=== PATIENT | male | born 1940 | race Caucasian/White ===

== ENCOUNTER 2016-09-18 01:21 | Observation (INO) | payer MEDICARE, OTHER ==
[2016-09-18 01:40] LABS: ABSOLUTE BASOPHILS # (AUTO) 0.1 10^3/uL (0.0-0.2); ABSOLUTE EOSINOPHILS # (AUTO) 0.4 10^3/uL (0.0-0.6); ABSOLUTE LYMPHOCYTES (AUTO) 3.3 10^3/uL (0.5-4.7); ABSOLUTE MONOCYTES (AUTO) 0.8 10^3/uL (0.1-1.4); ABSOLUTE NEUT (AUTO) 5.5 10^3/uL (1.7-8.2); BASOPHILS % (AUTO) 1.2 % (0-2); EOSINOPHILS % (AUTO) 3.8 % (0-6); HEMATOCRIT 42.5 % (37.9-51.0); HEMOGLOBIN 14.8 g/dL (13.5-17.0); HGB HCT DIFFERENCE 1.9; LYMPHOCYTES % (AUTO) 32.9 % (13-45); MEAN CORPUSCULAR HEMOGLOBIN 30.3 pg (27.0-33.4); MEAN CORPUSCULAR HGB CONC 34.9 g/dL (32.0-36.0); MEAN CORPUSCULAR VOLUME 87 fl (80-97); MONOCYTES % (AUTO) 7.6 % (3-13); RED CELL DISTRIBUTION WIDTH 13.6 % (11.5-14.0); SEGMENTED NEUTROPHILS % (AUTO) 54.5 % (42-78); WHITE BLOOD COUNT 10.1 10^3/uL (4.0-10.5)
[2016-09-18 01:47] LABS: PARTIAL THROMBOPLASTIN TIME 32.5 SEC (23.5-35.8); PROTHROMBIN TIME 13.2 SEC (11.4-15.4)
[2016-09-18 01:53] LABS: ALANINE AMINOTRANSFERASE 33 U/L (21-72); ALBUMIN 4.2 g/dL (3.5-5.0); ALKALINE PHOSPHATASE 64 U/L (38-126); ANION GAP 13 (5-19); ASPARTATE AMINO TRANSFERASE 29 U/L (17-59); BILIRUBIN,DIRECT 0.2 mg/dL (0.0-0.4); BILIRUBIN,TOTAL 0.6 mg/dL (0.2-1.3); BLOOD UREA NITROGEN 19 mg/dL (7-20); CARBON DIOXIDE 28 mmol/L (22-30); CHLORIDE 103 mmol/L (98-107); CREATININE RESULT 1.16 mg/dL (0.52-1.25); GLUCOSE 159 mg/dL (75-110); POTASSIUM 3.7 mmol/L (3.6-5.0); SODIUM 143.8 mmol/L (137-145); TOTAL PROTEIN 6.8 g/dL (6.3-8.2)
--- NOTE | 2016-09-18 01:54 | ER Document Report ---
ED General - General Chief Complaint: Numbness Stated Complaint: NUMBNESS AND TINGLING TO RIGHT SIDE Notes: Patient is a [age] [id number] male who presents with complaints of episode of numbness, tingling, and discoordination of his right leg right arm. He also numbness going into his right chin and face. Said symptoms started around midnight. He said initially last about 10 minutes and eventually resolved. His says that his gait was very ataxic this time. Patient said symptoms and later came back for just a few minutes and then went away again. He is currently asymptomatic. He's never had anything like this before. No chest pain. No headache. No nausea vomiting. No previous history of stroke. He takes a daily aspirin. His did give him 3 baby aspirin before came to the ER. He does have a history of MD. He does have stents. He's currently not on Plavix. TRAVEL OUTSIDE OF THE [place] IN LAST 30 DAYS: No - Related Data Allergies/Adverse Reactions: prednisone [Prednisone] Adverse Reaction (Mild, Verified 07/05/12 21:46) Past Medical History - Social History Smoking Status: Unknown if Ever Smoked Frequency of alcohol use: None Drug Abuse: None Family History: Reviewed & Not Pertinent - Past Medical History Cardiac Medical History: Reports: Hx Hypertension Past Surgical History: Reports: Hx Cardiac Surgery - pacer, Hx Inguinal Hernia, Hx Pacemaker - Immunizations Immunizations up to date: No Hx Diphtheria, Pertussis, Tetanus Vaccination: No Review of Systems - Review of Systems Notes: My Normal Review Basic REVIEW OF SYSTEMS: CONSTITUTIONAL : Denies fever, chills, or sweats. Denies recent illness. EENT: Denies eye, ear, throat, or mouth pain or symptoms. Denies nasal or sinus congestion. CARDIOVASCULAR: Denies chest pain. RESPIRATORY: Denies cough, cold, or chest congestion. Denies shortness of breath, difficulty breathing, or wheezing. GASTROINTESTINAL: Denies abdominal pain. Denies nausea, vomiting, or diarrhea. Denies constipation. Last BM: MUSCULOSKELETAL: Denies neck or back pain or joint pain or swelling. SKIN: Denies rash or skin lesions. HEMATOLOGIC : Denies easy bruising or bleeding. NEUROLOGICAL: Denies altered mental status or loss of consciousness. Denies headache. right sided numbness and facial numbness. some ataxia. PSYCHIATRIC: Denies anxiety or stress or depression. ALL OTHER SYSTEMS REVIEWED AND NEGATIVE. Physical Exam - Vital signs Vitals: Temp Pulse Resp BP Pulse Ox 98.2 F 72 16 165/83 H 96 09/18/16 01:26 09/18/16 01:26 09/18/16 01:26 09/18/16 01:26 09/18/16 01:26 - Notes Notes: General Appearance: Well nourished, alert, cooperative, no acute distress, no obvious discomfort. Vitals: reviewed, See vital signs table. Head: no swelling or tenderness to the head Eyes: PERRL, EOMI, Conjuctiva clear Mouth: No decreasd moisture Neck: Supple, no neck tenderness, No thyromegaly Lungs: No wheezing, No rales, No rhonci, No accessory muscle use, good air exchange bilaterally. Heart: Normal rate, Regular rythm, No murmur, no rub Abdomen: Normal BS, soft, No rigidity, No abdominal tenderness, No guarding, no rebound, no abdominal masses, no organomegaly Extremities: strength 5/5 in all extremities, good pulses in all extremities, no swelling or tenderness in the extremities, no edema. Skin: warm, dry, appropriate color, no rash Neuro: speech clear, oriented x 3, normal affect, responds appropriately to questions. Cranial nerves II through XII are intact. Distal sensation intact. Patient moves all extremities without difficulty. Normal gait. Normal Romberg. Focal neurologic deficits on exam. Course - Vital Signs Vital signs: Temp Pulse Resp BP Pulse Ox 97.8 F 73 16 160/93 H 98 09/18/16 02:56 09/18/16 02:56 09/18/16 02:56 09/18/16 02:56 09/18/16 02:56 - Laboratory Result Diagrams: 09/18/16 01:31 09/18/16 01:31 Laboratory results interpreted by me: 09/18/16 01:31 Glucose 159 H - Transfer of Care Notes: 09/18/16 03:09 Patient symptoms are concerning for a TIA. He is asymptomatic at this time. I spoke with the hospitalist who agrees to admit the patient for further workup and treatment. Patient had aspirin just prior to arrival to the ER and therefore aspirin is not given here. Dictation of this chart was performed using voice recognition software; therefore, there may be some unintended grammatical errors. Discharge - Discharge Clinical Impression: TIA (transient ischemic attack) Qualifiers: Transient cerebral ischemia type: unspecified Qualified Code(s): G45.9 - Transient cerebral ischemic attack, unspecified Condition: Stable Disposition: ADMITTED OBSERVATION Admitting Provider: Hospitalist Unit Admitted: Telemetry
[2016-09-18] MEDS ORDERED: ASPIRIN 325 MG TABLET PO ONE (03:08)
[2016-09-18] MEDS ORDERED: ATORVASTATIN CALCIUM 80 MG TABLET PO ONE (03:08)
[2016-09-18] MEDS ORDERED: ACETAMINOPHEN 325 MG TABLET PO PRN (03:11)
[2016-09-18] MEDS ORDERED: DOCUSATE SODIUM 100 MG CAPSULE PO PRN (03:11)
[2016-09-18 03:59] LABS: CREATINE KINASE MB 1.48 ng/mL (<4.55)
[2016-09-18] MEDS ORDERED: POTASSIUM CHLORIDE 10 MEQ TABLET.SA PO SCH (04:00)
[2016-09-18 04:05] LABS: TROPONIN I < 0.012 ng/mL
--- NOTE | 2016-09-18 04:17 | PDOC H&P ---
History of Present Illness Admission Date/PCP: 09/18/16 03:20 Patient complains of: Right-sided numbness History of Present Illness: ALLI VINES SR is a 76 year old male with a past medical history of coronary artery disease status post stent of unknown artery, hypertension, dyslipidemia and remote migraine headache. Improvement in his usual state of health until approximately an hour prior to presentation awakening from sleep with right-sided numbness involving the face arm and leg persisting approximately 15 minutes resolving spontaneously only to recur approximately 30 minutes later lasting approximately 10 minutes resolving spontaneously. He denied headache blurred vision difficulty with speech or swallowing. He denies palpitations, previous, new medications and otherwise feels well. He has had a recent screening carotid ultrasound which was 2 months ago. Past Medical History Cardiac Medical History: Reports: Coronary Artery Disease, Hypertension, Other - Status post permanent pacemaker placement Endocrine Medical History: Reports: Diabetes Mellitus Type 2, Other - Dyslipidemia Past Surgical History Past Surgical History: Reports: Pacemaker Social History Information Source: Patient Lives with: Family Smoking Status: Never Smoker Frequency of Alcohol Use: None Hx Recreational Drug Use: No Drugs: None - Advance Directive Resuscitation Status: Full Code Family History Family History: Hypertension Parental Family History Reviewed: Yes Children Family History Reviewed: Yes Sibling(s) Family History Reviewed.: Yes Medication/Allergy Allergies/Adverse Reactions: prednisone [Prednisone] Adverse Reaction (Mild, Verified 07/05/12 21:46) Review of Systems Constitutional: ABSENT: chills, fever(s), headache(s), weight gain, weight loss Eyes: ABSENT: visual disturbances Ears: ABSENT: hearing changes Cardiovascular: ABSENT: chest pain, dyspnea on exertion, edema, orthropnea, palpitations Respiratory: ABSENT: cough, hemoptysis Gastrointestinal: ABSENT: abdominal pain, constipation, diarrhea, hematemesis, hematochezia, nausea, vomiting Genitourinary: ABSENT: dysuria, hematuria Musculoskeletal: ABSENT: joint swelling Integumentary: ABSENT: rash, wounds Neurological: ABSENT: abnormal gait, abnormal speech, confusion, dizziness, focal weakness, syncope Psychiatric: ABSENT: anxiety, depression, homidical ideation, suicidal ideation Endocrine: ABSENT: cold intolerance, heat intolerance, polydipsia, polyuria Hematologic/Lymphatic: ABSENT: easy bleeding, easy bruising Physical Exam Vital Signs: Temp Pulse Resp BP Pulse Ox 97.8 F 73 32 H 161/93 H 95 09/18/16 02:56 09/18/16 02:56 09/18/16 03:37 09/18/16 03:37 09/18/16 03:37 Intake & Output 09/16/16 09/17/16 09/18/16 11:59 11:59 11:59 Weight 86.183 kg General appearance: PRESENT: no acute distress, well-developed, well-nourished Head exam: PRESENT: atraumatic, normocephalic Eye exam: PRESENT: conjunctiva pink, EOMI, PERRLA. ABSENT: scleral icterus Ear exam: PRESENT: normal external ear exam Mouth exam: PRESENT: moist, tongue midline Neck exam: ABSENT: carotid bruit, JVD, lymphadenopathy, thyromegaly Respiratory exam: PRESENT: clear to auscultation barbi. ABSENT: rales, rhonchi, wheezes Cardiovascular exam: PRESENT: RRR. ABSENT: diastolic murmur, rubs, systolic murmur Pulses: PRESENT: normal dorsalis pedis pul Vascular exam: PRESENT: normal capillary refill GI/Abdominal exam: PRESENT: normal bowel sounds, soft. ABSENT: distended, guarding, mass, organolmegaly, rebound, tenderness Rectal exam: PRESENT: deferred Extremities exam: PRESENT: full ROM. ABSENT: calf tenderness, clubbing, pedal edema Neurological exam: PRESENT: alert, awake, oriented to person, oriented to place , oriented to time, oriented to situation, CN II-XII grossly intact. ABSENT: motor sensory deficit Psychiatric exam: PRESENT: appropriate affect, normal mood. ABSENT: homicidal ideation, suicidal ideation Skin exam: PRESENT: dry, intact, warm. ABSENT: cyanosis, rash Results Impressions: Head CT 09/18/16 00:00 IMPRESSION: MILD CHRONIC CHANGES OF ATROPHY AND MICROVASCULAR ISCHEMIA. NO ACUTE PROCESS. Assessment & Plan - Diagnosis (1) TIA (transient ischemic attack) Qualifiers: Transient cerebral ischemia type: unspecified Qualified Code(s): G45.9 - Transient cerebral ischemic attack, unspecified Is this a current diagnosis for this admission?: YesPlan: TIA with multiple risk factors he's received aspirin. Lipitor permissive hypertension will evaluate with MRI of brain (2) Hypertension Is this a current diagnosis for this admission?: YesPlan: Well controlled though will hold antihypertensives for systolic pressure greater than 160 (3) Diabetes 1.5, managed as type 2 Is this a current diagnosis for this admission?: YesPlan: Patient recently started on metformin now evaluated and A1c and initiate sliding scale insulin - Time Time Spent: 50 to 70 Minutes
[2016-09-18 04:30] LABS: URINE BARBITURATES SCREEN NEGATIVE; URINE METHADONE SCREEN NEGATIVE; URINE OPIATES LOW NEGATIVE; URINE PHENCYCLIDINE SCREEN NEGATIVE
[2016-09-18] MEDS: HEPARIN SOD (PORCINE) 5,000 UNIT/ML 1 ML SYRINGE SUBCUT SCH ×2 (06:41→14:23)
[2016-09-18 07:54] LABS: ABSOLUTE BASOPHILS # (AUTO) 0.1 10^3/uL (0.0-0.2); ABSOLUTE EOSINOPHILS # (AUTO) 0.3 10^3/uL (0.0-0.6); ABSOLUTE LYMPHOCYTES (AUTO) 3.4 10^3/uL (0.5-4.7); ABSOLUTE MONOCYTES (AUTO) 0.6 10^3/uL (0.1-1.4); ABSOLUTE NEUT (AUTO) 4.3 10^3/uL (1.7-8.2); BASOPHILS % (AUTO) 1.1 % (0-2); EOSINOPHILS % (AUTO) 3.9 % (0-6); HEMATOCRIT 43.2 % (37.9-51.0); HEMOGLOBIN 14.9 g/dL (13.5-17.0); HGB HCT DIFFERENCE 1.5; LYMPHOCYTES % (AUTO) 38.4 % (13-45); MEAN CORPUSCULAR HEMOGLOBIN 30.2 pg (27.0-33.4); MEAN CORPUSCULAR HGB CONC 34.6 g/dL (32.0-36.0); MEAN CORPUSCULAR VOLUME 87 fl (80-97); MONOCYTES % (AUTO) 7.3 % (3-13); RED BLOOD COUNT 4.95 10^6/uL (4.35-5.55); RED CELL DISTRIBUTION WIDTH 13.6 % (11.5-14.0); SEGMENTED NEUTROPHILS % (AUTO) 49.3 % (42-78); WHITE BLOOD COUNT 8.8 10^3/uL (4.0-10.5)
[2016-09-18 08:23] LABS: CREATINE KINASE MB 1.77 ng/mL (<4.55)
[2016-09-18 08:28] LABS: TROPONIN I < 0.012 ng/mL
[2016-09-18] MEDS ORDERED: ASPIRIN 325 MG TABLET PO SCH (10:00)
--- NOTE | 2016-09-18 11:57 | XCELERA REPORT ---
[address] [id number] Transthoracic Echocardiogram Report Name: ALLI VINES Age: 76 yrs Gender: Male : 1940 Patient Status: Inpatient Patient Location: [id number]\321\[id number] Study Date: 09/18/2016 10:01 AM Height: 70 in Weight: 193 lb BSA: 2.1 m2 Procedure: A two-dimensional transthoracic echocardiogram with color flow and Doppler was performed. The study was technically difficult with many images being suboptimal in quality. The study was technically limited with all images being suboptimal in quality. Reason For Study: TIA / CVA History: TIA / CVA. Ordering Physician: SALENA SLATER Performed By: Marques Young Interpretation Summary There is no obvious cardiac source of embolus noted on this transthoracic echocardiogram. Follow-up with a DUTCH is suggested if cardiac source is still suspected. The left ventricle is normal in size. Mild to moderate concentric LVH. LV EF is 60% Left ventricular systolic function is normal. LV diastolic function could not be adequately assessed due to atrial fibrilation. Probablly no regional wall clem abnormality,but cannt be sure. The right ventricle is grossly normal size. The right ventricle is not well visualized secondary to technical limitations There is a pacemaker lead in the right ventricle. Probably normal RA size. The left atrial size is normal. There is no evidence of mitral valve prolapse. There is no vegetation seen on the mitral valve. There is no mitral valve stenosis. There is a trace amount of mitral regurgitation There is no aortic valve stenosis There is no LVOT obstruction. There is a mild amount of aortic regurgitation There is no tricuspid stenosis. There is a mild amount of tricuspid regurgitation Right ventricular systolic pressure is normal. RVSP is 25 to 30 mm of Hg, with RA mean of 5 to`0. There is no pulmonic valvular stenosis. There is a trace amount of pulmonic regurgitation The aortic root is mildly dilated There is no pericardial effusion. There is no obvious cardiac source of embolus noted on this transthoracic echocardiogram. Follow-up with a DUTCH is suggested if cardiac source is still suspected MMode/2D Measurements \T\ Calculations RVDd: 3.6 cm LVIDd: 4.7 cm FS: 33.6 % Ao root diam: 4.0 cm IVSd: 1.4 cm LVIDs: 3.1 cm EDV(Teich): 100.9 ml LVPWd: 1.4 cm ESV(Teich): 38.0 ml Ao root area: 12.6 cm2 EF(Teich): 62.4 % LA dimension: 3.0 cm Doppler Measurements \T\ Calculations MV E max piyush: MV P1/2t max piyush: Ao V2 max: AI max piyush: 92.2 cm/sec 92.9 cm/sec 97.2 cm/sec 222.4 cm/sec MV P1/2t: 38.4 msec Ao max PG: AI max P.8 mmHg 20.3 mmHg MVA(P1/2t): 5.7 cm2 AI dec slope: MV dec slope: 709.3 cm/sec2 118.5 cm/sec2 AI P1/2t: 549.8 msec LV V1 max PG: PA V2 max: PI end-d piyush: TR max piyush: 1.9 mmHg 48.0 cm/sec 125.1 cm/sec 222.4 cm/sec LV V1 max: PA max P.92 mmHg TR max P.6 cm/sec 19.8 mmHg RVSP(TR): 29.8 mmHg RAP systole: 10.0 mmHg Left Ventricle The left ventricle is normal in size. Mild to moderate concentric LVH. LV EF is 60%. Left ventricular systolic function is normal. LV diastolic function could not be adequately assessed due to atrial fibrilation. Probablly no regional wall clem abnormality,but cannt be sure. There is no thrombus. Right Ventricle The right ventricle is grossly normal size. The right ventricle is not well visualized secondary to technical limitations. There is a pacemaker lead in the right ventricle. Atria Probably normal RA size. The left atrial size is normal. Mitral Valve There is no evidence of mitral valve prolapse. There is no vegetation seen on the mitral valve. There is no mitral valve stenosis. There is a trace amount of mitral regurgitation. Aortic Valve There is no aortic valvular vegetation. There is no aortic valve stenosis. There is no LVOT obstruction. There is a mild amount of aortic regurgitation. Tricuspid Valve There is no tricuspid stenosis. There is a mild amount of tricuspid regurgitation. Right ventricular systolic pressure is normal. RVSP is 25 to 30 mm of Hg, with RA mean of 5 to`0. Pulmonic Valve There is no pulmonic valvular stenosis. There is a trace amount of pulmonic regurgitation. Great Vessels The aortic root is mildly dilated. Effusions There is no pericardial effusion. : SALENA SLATER > Zehra Canela
--- NOTE | 2016-09-18 12:34 | EKG REPORT ---
SEVERITY:- ABNORMAL ECG - ATRIAL-PACED COMPLEXES FIRST DEGREE AV BLOCK INCOMPLETE RBBB AND LAFB : Confirmed by: Edinson Goodman 18-Sep-2016 12:34:10
[2016-09-18 14:06] LABS: CREATINE KINASE MB 1.58 ng/mL (<4.55)
[2016-09-18 14:11] LABS: TROPONIN I < 0.012 ng/mL
--- NOTE | 2016-09-18 16:37 | PDOC DISCHARGE SUMMARY ---
General - Admit/Disc Date/PCP Admission Date/Primary Care Provider: 09/18/16 03:11 [facility] Internal Medicine Discharge Date: 09/18/16 - Discharge Diagnosis (1) TIA (transient ischemic attack) Is this a current diagnosis for this admission?: Yes (2) CAD (coronary artery disease) Is this a current diagnosis for this admission?: Yes (3) Hypertension Is this a current diagnosis for this admission?: Yes - Additional Information Resuscitation Status: Full Code Discharge Diet: Regular, Cardiac Discharge Activity: Activity As Tolerated Home Medications: Amlodipine Besylate [Norvasc 5 mg Tablet] 5 mg PO DAILY 09/18/16 Aspirin [Ecotrin 81 mg EC Tablet] 81 mg PO DAILY 09/18/16 Cholecalciferol (Vitamin D3) [Vitamin D3 5000 unit Capsule] 5,000 unit PO DAILY 09/18/16 Levothyroxine Sodium [Synthroid 0.05 mg Tablet] 0.05 mg PO DAILY 09/18/16 Losartan Potassium [Cozaar 50 mg Tablet] 50 mg PO DAILY 09/18/16 Metformin HCl [Glucophage] 1,000 mg PO QHS 09/18/16 Metoprolol Tartrate [Lopressor 50 mg Tablet] 50 mg PO Q12 09/18/16 Metronidazole [Metrogel] 1 applic TOP DAILY 09/18/16 Nitroglycerin [Nitrostat] 0.4 mg SL Q5MP PRN 09/18/16 Potassium Chloride [Klor-Con 10 Meq Tablet.sa] 20 meq PO DAILY 09/18/16 Pravastatin Sodium [Pravachol] 40 mg PO DAILY 09/18/16 History of Present Illness Patient complains of: Right sided weakness History of Present Illness: ALLI VINES is a 76 year old male with a past medical history of coronary artery disease status post stent of unknown artery, hypertension, dyslipidemia and remote migraine headache. Improvement in his usual state of health until approximately an hour prior to presentation awakening from sleep with right-sided numbness involving the face arm and leg persisting approximately 15 minutes resolving spontaneously only to recur approximately 30 minutes later lasting approximately 10 minutes resolving spontaneously. He denied headache blurred vision difficulty with speech or swallowing. He denies palpitations, previous, new medications and otherwise feels well. He has had a recent screening carotid ultrasound which was 2 months ago. Hospital Course Hospital Course: The patient was observed continuous telemetry unit. The patient had no episodes while on the monitoring manager. No replication of symptoms. The patient underwent head and neck CTA since he was unable to have MRI of the brain which did not reveal any acute findings. The patient had a carotid Doppler 2 months ago which was unremarkable with no significant stenosis. Echocardiogram did not reveal an embolic source. The patient's pacemaker was interrogated and had no evidence of atrial fibrillation or a flutter. The patient was maximized on statin therapy and aspirin. Home medications reconciled. The patient is to follow with primary care provider within one week for hospital follow-up. Physical Exam Vital Signs: Temp Pulse Resp BP Pulse Ox 97.3 F 69 19 115/87 H 98 09/18/16 15:34 09/18/16 15:34 09/18/16 15:34 09/18/16 15:34 09/18/16 15:34 Intake & Output 09/16/16 09/17/16 09/18/16 23:59 23:59 23:59 Intake Total 685 Output Total 0 Balance 685 Weight 87.6 kg General appearance: PRESENT: no acute distress, cooperative, well-developed, well-nourished Head exam: PRESENT: atraumatic, normocephalic Eye exam: PRESENT: conjunctiva pink, EOMI, PERRLA. ABSENT: scleral icterus Ear exam: PRESENT: normal external ear exam Mouth exam: PRESENT: moist, tongue midline Neck exam: ABSENT: carotid bruit, JVD, lymphadenopathy, thyromegaly Respiratory exam: PRESENT: clear to auscultation barbi, symmetrical, unlabored. ABSENT: rales, rhonchi, tachypnea, wheezes Cardiovascular exam: PRESENT: RRR. ABSENT: diastolic murmur, rubs, systolic murmur Pulses: PRESENT: normal dorsalis pedis pul Vascular exam: PRESENT: normal capillary refill GI/Abdominal exam: PRESENT: normal bowel sounds, soft. ABSENT: distended, guarding, mass, organolmegaly, rebound, tenderness Rectal exam: PRESENT: deferred Extremities exam: PRESENT: full ROM. ABSENT: calf tenderness, clubbing, pedal edema Neurological exam: PRESENT: alert, awake, oriented to person, oriented to place , oriented to time, oriented to situation, CN II-XII grossly intact. ABSENT: motor sensory deficit Psychiatric exam: PRESENT: appropriate affect, normal mood. ABSENT: homicidal ideation, suicidal ideation Skin exam: PRESENT: dry, intact, warm. ABSENT: cyanosis, rash Results Laboratory Results: Labs- Last Values WBC 8.8 10^3/uL (4.0-10.5) 09/18/16 07:33 RBC 4.95 10^6/uL (4.35-5.55) 09/18/16 07:33 Hgb 14.9 g/dL (13.5-17.0) 09/18/16 07:33 Hct 43.2 % (37.9-51.0) 09/18/16 07:33 MCV 87 fl (80-97) 09/18/16 07:33 MCH 30.2 pg (27.0-33.4) 09/18/16 07:33 MCHC 34.6 g/dL (32.0-36.0) 09/18/16 07:33 RDW 13.6 % (11.5-14.0) 09/18/16 07:33 Plt Count 212 10^3/uL (150-450) 09/18/16 07:33 Seg Neutrophils % 49.3 % (42-78) 09/18/16 07:33 Lymphocytes % 38.4 % (13-45) 09/18/16 07:33 Monocytes % 7.3 % (3-13) 09/18/16 07:33 Eosinophils % 3.9 % (0-6) 09/18/16 07:33 Basophils % 1.1 % (0-2) 09/18/16 07:33 Absolute Neutrophils 4.3 10^3/uL (1.7-8.2) 09/18/16 07:33 Absolute Lymphocytes 3.4 10^3/uL (0.5-4.7) 09/18/16 07:33 Absolute Monocytes 0.6 10^3/uL (0.1-1.4) 09/18/16 07:33 Absolute Eosinophils 0.3 10^3/uL (0.0-0.6) 09/18/16 07:33 Absolute Basophils 0.1 10^3/uL (0.0-0.2) 09/18/16 07:33 PT 13.2 SEC (11.4-15.4) 09/18/16 01:31 INR 0.97 09/18/16 01:31 APTT 32.5 SEC (23.5-35.8) 09/18/16 01:31 Sodium 143.8 mmol/L (137-145) 09/18/16 01:31 Potassium 3.7 mmol/L (3.6-5.0) 09/18/16 01:31 Chloride 103 mmol/L (98-107) 09/18/16 01:31 Carbon Dioxide 28 mmol/L (22-30) 09/18/16 01:31 Anion Gap 13 (5-19) 09/18/16 01:31 BUN 19 mg/dL (7-20) 09/18/16 01:31 Creatinine 1.16 mg/dL (0.52-1.25) 09/18/16 01:31 Est GFR ( Amer) > 60 (>60) 09/18/16 01:31 Est GFR (Non-Af Amer) > 60 (>60) 09/18/16 01:31 Glucose 159 mg/dL (75-110) H 09/18/16 01:31 Calcium 10.0 mg/dL (8.4-10.2) 09/18/16 01:31 Total Bilirubin 0.6 mg/dL (0.2-1.3) 09/18/16 01:31 Direct Bilirubin 0.2 mg/dL (0.0-0.4) 09/18/16 01:31 Indirect Bilirubin Not Reportable 09/18/16 01:31 Neonat Total Bilirubin Not Reportable 09/18/16 01:31 AST 29 U/L (17-59) 09/18/16 01:31 ALT 33 U/L (21-72) 09/18/16 01:31 Alkaline Phosphatase 64 U/L (38-126) 09/18/16 01:31 Creatine Kinase 73 U/L (55-170) 09/18/16 13:28 CK-MB (CK-2) 1.58 ng/mL (<4.55) 09/18/16 13:28 Troponin I < 0.012 ng/mL 09/18/16 13:28 Total Protein 6.8 g/dL (6.3-8.2) 09/18/16 01:31 Albumin 4.2 g/dL (3.5-5.0) 09/18/16 01:31 TSH 7.36 uIU/mL (0.47-4.68) H 09/18/16 01:31 Free T4 1.39 ng/dL (0.78-2.19) 09/18/16 07:33 Urine Opiates Screen NEGATIVE 09/18/16 03:58 Urine Methadone Screen NEGATIVE 09/18/16 03:58 Ur Barbiturates Screen NEGATIVE 09/18/16 03:58 Ur Phencyclidine Scrn NEGATIVE 09/18/16 03:58 Ur Amphetamines Screen NEGATIVE 09/18/16 03:58 U Benzodiazepines Scrn NEGATIVE 09/18/16 03:58 Urine Cocaine Screen NEGATIVE 09/18/16 03:58 U Marijuana (THC) Screen NEGATIVE 09/18/16 03:58 Impressions: Head CT 09/18/16 00:00 IMPRESSION: MILD CHRONIC CHANGES OF ATROPHY AND MICROVASCULAR ISCHEMIA. NO ACUTE PROCESS. Head CTA 09/18/16 00:00 IMPRESSION: NO CTA EVIDENCE OF STENOSIS OR ANEURYSM OF THE [place]. Neck CTA 09/18/16 00:00 IMPRESSION: 1. NORMAL CTA OF THE EXTRA-CRANIAL CAROTID AND VERTEBRAL ARTERIES. THERE IS NO STENOSIS. 2. APPARENT 4 MM PULMONARY NODULE IN THE RIGHT UPPER LOBE. NOT COMPLETELY IMAGED. FOLLOWUP CHEST CT SHOULD BE CONSIDERED. Qualifiers PATEINT BEING DISCHARGED WITH ANY OF THE FOLLOWING DIAGNOSIS?: No Plan Time Spent: Greater than 30 Minutes - Time spent on this discharge including assessment, plan, physical examination, patient family, education, and multiple rounding visits 60 minutes.
[2016-09-18 17:04] VITALS: BP 167/92
[2016-09-18] MEDS ORDERED: ATORVASTATIN CALCIUM 80 MG TABLET PO SCH (22:00)
== END 2016-09-18 17:22 | disposition home or self-care (01) ==
LOC: ER 01:21 → EH 03:11 → UNDOADMOB 03:20 → 3W 05:11
PROVIDERS: ADMIT Internal Medicine; ATTEND Internal Medicine
DX: G45.9 Transient cerebral ischemic attack, unspecified (principal); I25.10 Atherosclerotic heart disease of native coronary artery without angina pectoris; I10 Essential (primary) hypertension; E11.9 Type 2 diabetes mellitus without complications; Z79.84 Long term (current) use of oral hypoglycemic drugs; Z95.0 Presence of cardiac pacemaker
CPT/HCPCS: 93005; 99285; 36415; 84439; 82553; 82550; 84443; 85025; 85610; 85730; 80053; 84484; 80307; 93306; 70450; 70496; 70498; 93010; G0378 ×2; A9270 ×3; J1644; J3490